=== PATIENT | female | born 1960 | race Caucasian/White ===

== ENCOUNTER → 2017-04-07 | Day surgery (SDC) | payer OTHER ==
[~2017-04-07] MED LIST: DEXL60CA2 PO; HYDROmorphone 2 MG/ML VIAL IV PRN; IV RINGERS,LACTATED 1000ML 1,000 ML IV SCH; LIDOCAINE 1% 1 ML SYRINGE. ID PRN; LIDOCAINE 2% PF Vial for OR 5 ML VIAL. ONE; MORPHINE SULFATE 2 MG/ML DISP.SYRIN. IV PRN; ONDANSETRON PF 4 MG/2 ML VIAL. IV PRN; PROCHLORPERAZINE 10 MG/2 ML VIAL. IV PRN; PROPOFOL 20 ML IV ONE; SOLI10TA2 PO; VARE0.5T PO; fentaNYL PF VIAL 100 MCG/2 ML VIAL IV PRN
[2017-04-07 16:37] VITALS: BP 143/90
--- NOTE | 2017-04-08 05:31 | HP ---
ADMIT DATE: 04/07/2017 HISTORY OF PRESENT ILLNESS: This is a 56-year-old female with past medical history significant for hep C, GERD, depression, hyperlipidemia, hypertension, who is status post and tubal ligation, seen with persistent epigastric abdominal pain associated with anorexia, nausea, vomiting and belching. The patient has been on acid suppressive therapy with Dexilant 60 mg daily, previously with Prilosec without improvement. No dysphagia or odynophagia was present. Colonoscopy in 2014 was unrevealing. She has completed hepatitis C therapy. Her presently cleared. [place] and spicy foods do seem to have worsened her symptoms, but hepatobiliary imaging was unrevealing. With continued issues, she requested additional evaluation. PAST MEDICAL HISTORY: Hypertension, depression, previous hep C, hyperlipidemia. ALLERGIES: ACETAMINOPHEN AND OXYCODONE. MEDICATIONS: Include Dexilant, VESIcare and Chantix. SOCIAL HISTORY: She is a current smoker and social drinker. FAMILY HISTORY: Significant for blood pressure in maternal grandmother. REVIEW OF SYSTEMS: Per records. PHYSICAL EXAMINATION: GENERAL: Reveals a well-nourished and well-developed female. VITAL SIGNS: Temperature is 97.1, pulse 71, respirations 20. HEENT: Exam reveals normocephalic and atraumatic head. Pupils and extraocular muscles are not tested. Sclerae are anicteric. NECK: Supple. LUNGS: Clear. CARDIOVASCULAR: Reveals an S1 and S2 without S3, S4 or appreciable murmur. ABDOMEN: Reveals a soft abdomen. Normal bowel sounds without appreciable hepatosplenomegaly. EXTREMITIES: Reveals no cyanosis, clubbing or edema. IMPRESSION: Abdominal pain, etiology is to be determined; gastroparesis, celiac and peptic ulcer disease in the differential. RECOMMENDATIONS: Recommend upper endoscopy to further assess. If this is unrevealing, then further consideration to gastric emptying study would be pursued. DARELL VAN MD DR: [email or web address]/[email or web address] JOB#: [id number] / [id number]
== END | disposition home or self-care (01) ==
LOC: ENDOS 14:53
PROVIDERS: ATTEND Internal Medicine Gastroenterology
DX: K29.50 Unspecified chronic gastritis without bleeding (principal); K27.9 Peptic ulcer, site unspecified, unspecified as acute or chronic, without hemorrhage or perforation; K21.9 Gastro-esophageal reflux disease without esophagitis; I10 Essential (primary) hypertension; E78.00 Pure hypercholesterolemia, unspecified; F32.9 Major depressive disorder, single episode, unspecified; B19.20 Unspecified viral hepatitis C without hepatic coma; Z98.51 Tubal ligation status
CPT/HCPCS: 43235; J2704

== ENCOUNTER → 2018-06-07 | Outpatient (CLI) | payer OTHER ==
[2017-04-07 16:37] VITALS: BP 143/90
[~2018-06-07] MED LIST changes: -HYDROmorphone 2 MG/ML VIAL IV PRN; -IV RINGERS,LACTATED 1000ML 1,000 ML IV SCH; -LIDOCAINE 1% 1 ML SYRINGE. ID PRN; -LIDOCAINE 2% PF Vial for OR 5 ML VIAL. ONE; -MORPHINE SULFATE 2 MG/ML DISP.SYRIN. IV PRN; -ONDANSETRON PF 4 MG/2 ML VIAL. IV PRN; -PROCHLORPERAZINE 10 MG/2 ML VIAL. IV PRN; -PROPOFOL 20 ML IV ONE; -fentaNYL PF VIAL 100 MCG/2 ML VIAL IV PRN
--- NOTE | 2018-06-07 18:02 | KCIC ---
MRI of the lumbar spine without contrast 06/07/2018 CLINICAL HISTORY: Low back pain which radiates down the right leg. TECHNIQUE: Unenhanced T1-weighted and T2-weighted sagittal and axial and inversion recovery sagittal images of the lumbar spine were obtained. FINDINGS: Comparison is made to radiographs of the lumbar spine dated 07/10/2017. Minimal S-shaped curvature of the thoracolumbar spine is seen. Degenerative signal changes are seen involving the L2-3, L3-4 and L4-5 discs. Degenerative signal changes are seen within the marrow surrounding these discs. The conus medullaris is normal in morphology, position, and signal characteristics. The L1-2 disc space is within normal limits. At the L2-3, L3-4 and L4-5 disc spaces there are mild generalized disc bulges. Degenerative changes are seen involving the facet joints bilaterally. There is mild ligamentum flavum hypertrophy bilaterally. These findings when combined do not result in significant central spinal canal or neural foraminal stenosis. At the L5-S1 disc space there is a minimal generalized disc bulge. Degenerative changes are seen involving the facet joints bilaterally. These findings do not result in significant central spinal canal or neural foraminal stenosis. IMPRESSION: The changes of degenerative disc disease are seen involving the lumbar spine as outlined above. These findings do not result in significant central spinal canal or neural foraminal stenosis at any level. Electronically signed by: Yazan Gerber MD (06/07/2018 5:58 PM) [id number]
== END | disposition home or self-care (01) ==
LOC: KCIC MRI 15:18
DX: M51.36 Other intervertebral disc degeneration, lumbar region (principal); I10 Essential (primary) hypertension; E78.00 Pure hypercholesterolemia, unspecified; K21.9 Gastro-esophageal reflux disease without esophagitis
CPT/HCPCS: 72148